=== PATIENT | male | born 1960 | race Two or more races ===

== ENCOUNTER 2024-08-15 20:20 | Emergency (ER) | payer MEDICAID, OTHER ==
[~2024-08-15] VITALS: Ht 175.3 cm; Wt 88.0 kg
--- NOTE | 2024-08-15 21:13 | ED.PDOC ---
General HPI Comments HPI: 64 year old male brought in by presents to the ED with chief complaint of inability to void. Patient reports that he has been experiencing dribbling when attempting to urinate for the past month, worsening over time. Patient relays that he has associated full body aches, no appetite, and subjective fever at home. Patient states he visited Dr. Lakhani's UC, but was advised to come to the ED for further evaluation due to the symptoms discussed. Patient denies any dysuria, hematuria, N/V/D, abdominal pain, or chills. Past Medical history: Denies Past Surgical history: Denies Medications: Denies Allergies: NKDA Social History: denies ETOH, denies tobacco use, denies drug use Initial vitals BP: 126/84 HR: 108 RR: 18 O2 Sat.: 96% Temp.: 98.8F HPI: Poor Historian. REVIEW OF SYSTEMS: CONSTITUTIONAL: Denies acute: fever, diaphoresis, chills, HEAD: Denies acute: headache, photophobia Eyes: Denies acute: Double vision, vision loss, eye pain, eye discharge. EARS: Denies acute: tinnitus, hearing loss, ear discharge, ear pain, THROAT: Denies acute: sore throat, swelling, difficulty swallowing , pain with swallowing, change in voice. NECK: Denies acute: neck pain, neck swelling, stiff neck. HEART: Denies acute : chest pain, palpitations, LUNGS: Denies acute: SOB, wheezing, cough, hemoptysis ABDOMEN: Denies acute: abdominal pain, Nausea, Vomiting, diarrhea, melena , hematemesis, hematochezia SKIN: Denies acute: rash, redness, lesions, itchiness. EXTREMITIES: Denies acute: calf pain, numbness, tingling, weakness, denies pain in extremity. Denies acute: Low back pain. Neuro: Denies acute: focal neurological deficit, motor or sensory focal neurological deficit, tremors, seizure like activity, confusion, dizziness, change in mental status, loss of bowel or bladder function, cauda equina like symptoms. : Denies acute: dysuria, hematuria, flank pain, increase in urinary frequency. PSYCH: Denies acute: hallucination, suicidal ideation, homicidal ideation. PHYSICAL EXAM: General: ----[id number]----acute distress, awake and alert. Head: normocephalic, atraumatic. Neck: supple, trachea is midline, no swelling. Throat: Normal phonation. Eyes:, no erythema, no purulent discharge, no proptosis, no icterus. Heart: regular tachycardia, no significant murmur appreciated. Lungs: no apparent respiratory distress, Able to speak in full sentences. No wheezing, no rhonchi, no crackles. No stridors Clear to auscultation bilaterally. Abdomen: non tender to palpation, non distended, soft, no guarding, no rebound, + bowel sounds. Neuro: Awake, Alert, oriented to name, self, situation, follows commands GCS=15. Speech is normal. Skin: no petechia, no purpura, no cyanosis, non-pale, not jaundice. Lower extremities: --no - Pitting edema no deformity, no focal swelling, no calf TTP. Makes eye contact. moves all four extremities. Face: no apparent facial droop. Ambulating in the ED independently. ED COURSE: Time Seen by MD: 21:10 Reviewed notes: Nurses Notes, Medications, Allergies Allergies: Coded Allergies: No Known Drug Allergy (Verified Allergy, Unknown, 08/15/24) Information Source: Patient Mode of Arrival: Ambulatory Was a procedure done? Was a procedure done?: No Differential Diagnosis Kidney stone (Female): N/A Urinary Problem (Male): Bladder Outlet, Bladder Obstruction, Epididymitis, Prostatitis, Plelonephritis, Post op Complications, Renal Failure, Urethritis, Urinary Retention, Urolithiasis, UTI, Other (MALE URINARY PROBLEMSDDX BPH, OBSTRUCTING NEOPLASM, BLADDER PATHOLOGY, OBSTRUCTION STONE. PHYMOSIS/PAPRPHYM OSIS, CAUDA EQUINA SYNDROME, UTI.) X-Ray, Labs, Meds, VS Vital Signs Date Time Temp Pulse Resp B/P (MAP) Pulse Ox O2 Delivery O2 Flow Rate FiO2 08/15/24 21:15 99.8 108 18 126/84 (98) 96 99.8 Lab Test 08/15/24 22:16 08/15/24 21:53 08/15/24 21:25 Range/Units Troponin I High Sensitivity 13 13 </=54 ng/L Urine Color Yellow Yellow Urine Clarity Turbid H Clear Urine pH 5.5 5.0-9.0 Urine Specific [place] 1.020 1.001-1.035 Urine Protein Trace H Negative Urine Ketones Negative Negative Urine Blood 2+ H Negative /uL Urine Nitrite Negative Negative Urine Bilirubin Negative Negative Urine Urobilinogen Normal Negative mg/dL Urine Leukocyte Esterase 3+ Negative /uL Urine RBC 15 0 - 3 /hpf Urine Microscopic WBC 262 H 0-3 /HPF Urine Squamous Epithelial Cells Few <5 /hpf Urine Bacteria None seen None Seen /hpf Urine Mucus Few None Seen Urine Glucose Normal Normal mg/dL White Blood Count 12.9 H 4.4-10.8 10^3/uL Red Blood Count 5.34 4.5-5.90 10^6/uL Hemoglobin 15.1 13.5-17.5 g/dL Hematocrit 44.4 41.0-53.0 % Mean Corpuscular Volume 83.1 80.0-100.0 fL Mean Corpuscular Hemoglobin 28.3 28.0-32.0 pg Mean Corpuscular Hemoglobin Concent 34.0 32.0-36.0 g/dL Red Cell Distribution Width 15.7 H 11.8-14.3 % Platelet Count 291 140-450 10^3/uL Mean Platelet Volume 7.3 6.9-10.8 fL Neutrophils (%) (Auto) 72.7 37.0-80.0 % Lymphocytes (%) (Auto) 13.4 10.0-50.0 % Monocytes (%) (Auto) 12.6 H 0.0-12.0 % Eosinophils (%) (Auto) 0.4 0.0-7.0 % Basophils (%) (Auto) 0.9 0.0-2.0 % Neutrophils # (Auto) 9.4 H 1.6-8.6 10 ^3/uL Lymphocytes # (Auto) 1.7 0.4-5.4 10 ^3/uL Monocytes # (Auto) 1.6 H 0-1.3 10 ^3/uL Eosinophils # (Auto) 0 0-0.8 10 ^3/uL Basophils # (Auto) 0.1 0-0.2 10 ^3/uL Nucleated Red Blood Cells 0.1 % Sodium Level 135 L 136-145 mmol/L Potassium Level 4.0 3.5-5.1 mmol/L Chloride Level 105 98-107 mmol/L Carbon Dioxide Level 22 20-31 mmol/L Anion Gap 8 5-15 Blood Urea Nitrogen 19 9-23 mg/dL Creatinine 1.24 0.700-1.30 mg/dL Glomerular Filtration Rate Calc 65 >90 mL/min BUN/Creatinine Ratio 15.3 10.0-20.0 Serum Glucose 109 H 74-106 mg/dL Lactic Acid Level 1.1 0.4-2.0 mmol/L Calcium Level 9.5 8.7-10.4 mg/dL Magnesium Level 2.0 1.6-2.6 mg/dL Total Bilirubin 0.9 0.2-1.0 mg/dL Aspartate Amino Transferase (AST) 14 13-40 U/L Alanine Aminotransferase (ALT) 22 7-40 U/L Alkaline Phosphatase 97 46-116 U/L Total Protein 8.0 5.7-8.2 g/dL Albumin 4.4 3.2-4.8 g/dL [place] [id number] Ph: [phone] DIAGNOSTIC IMAGING Diagnostic Imaging Report : [id number] Signed PATIENT: MIGUELITO SANTIAGO ACCT: [id number] UNIT: [id number] : 1960 LOC: ER ROOM / BED: / AGE / SEX: 64 / M ADM STATUS: REG ER SERVICE [id number] ORDERING PHYSICIAN: ANTONY SANDHU DO PROCEDURE(s): ABPL - CT AB PEL WO CON-NO ORAL OR IV REASON: Unable to urinate ORDER NUMBER(s): [id number], ACCESSION NUMBER(s): [id number] Exam: CT CT AB PEL WO CON-NO ORAL OR IV History: Unable to urinate Comparison Study: None Technique: Multidetector spiral CT of the abdomen was performed from lung bases to pubic symphysis. Imaging was performed without IV contrast. Axial, coronal and sagittal multiplanar reformats were obtained from the axial data set by the technologist. Radiation Dose : 1. Abdomen/Pelvis: CTDIvol 15 mGy, DLP 926 mGy*cm. Findings: Evaluation of solid organs is limited due to lack of intravenous contrast use. Lung Bases: Partially visualized descending thoracic aorta measures 4 cm in diameter. Liver: The liver is normal in size. No focal lesions. Gallbladder and Biliary Tree: Distended gallbladder demonstrating choleli thiasis. Spleen: Unremarkable Pancreas: The pancreas is grossly normal in appearance. Adrenal Glands: Unremarkable Kidneys: Kidneys are grossly normal without calculi or hydronephrosis. Bladder: Mild diffuse wall thickening. Bowel: The stomach is grossly normal in appearance. Small bowel and colon are normal in caliber and distribution. Normal appendix is visualized in the right lower quadrant without findings of appendicitis. Ascites: Absent Lymphadenopathy: No mesenteric, retroperitoneal or periportal lymphadenopathy. Abdominal Wall and Mesentery: Unremarkable. Vasculature: The visualized abdominal aorta is normal in size and caliber. Evaluation of abdominal and pelvic vessels is limited due to lack of intravenous contrast. Pelvic Organs: Unremarkable Musculoskeletal: No aggressive focal bony lesions, acute fractures or dislocation. IMPRESSION: Diffuse urinary bladder wall thickening. Correlate for acute infectious/inflammatory process. Cholelithiasis within a distended gallbladder. Partially visualized descending thoracic aorta measuring 4.1 cm. END IMPRESSION: ATED BY: CHARLY COOPER DO DICTATED DATE/TIME: 08/15/242216 SIGNED BY: CHARLY COOPER DO SIGNED DATE/TIME: 08/15/242216 CC: Time of 1ST Reevaluation: 00:00 Reevaluation 1ST: Unchanged Patient Education/Counseling: Diagnosis, Treatment Family Education/Counseling: Diagnosis, Treatment Comments Patient presented with the above HPI.---urinary symptoms---workup was initiated. patient was found with the above mentioned diagnosis. the following medications were ordered: please refer to order lists of meds and tests obtained by myself Dr. Sandhu. Patient ED course and VS have been stabilized. Patient has been reassessed in the ED and remained in a stable condition. Pertinent incidental findings were discussed with the patient and/or family. Patient/family voices understanding and is agreeable with plan. Patient has been observed in the ED adequate length of time to insure improvement/stability. Escalation of care considered: Consideration of escalation to observation or admission Patient appears septic and has generalized body aches and is in moderate distress. Fluids and antibiotics initiated. Sepsis protocol was initiated with weight based fluid resuscitation. Patient was ADMITTED to the medicine team for further evaluation and treatment of their presentation. All the reports of any imaging studies that were ordered by myself were reviewed by myself. Departure 1 Departure Time of Disposition: 22:30 Impression: Primary Impression: Cystitis Additional Impressions: UTI (urinary tract infection) Sepsis Disposition: ADMITTED INPATIENT Admit to: Tele Condition: Guarded Discharged With: Self Critical Care Note Critical Care Time?: Yes (35 min-critical care time only) I personally scribed for ANTONY SANDHU DO ([email or web address]) on 08/15/24 at 21:12. Electronically submitted by Graham Kenny ([email or web address]). ANTONY SANDHU DO Aug 15, 2024 21:12
[2024-08-15 21:15] VITALS: BP 126/84; PULSE 108; RESP 18; TEMP 99.8; O2SAT 96
[2024-08-15 21:39] LABS: Basophils # (auto) 0.1 10 ^3/uL (0-0.2); Basophils % (auto) 0.9 % (0.0-2.0); Eosinophils # (auto) 0 10 ^3/uL (0-0.8); Eosinophils % (auto) 0.4 % (0.0-7.0); Hematocrit 44.4 % (41.0-53.0); Hemoglobin 15.1 g/dL (13.5-17.5); Lymphocytes # (auto) 1.7 10 ^3/uL (0.4-5.4); Lymphocytes % (auto) 13.4 % (10.0-50.0); Mean Corpuscular Hemoglobin 28.3 pg (28.0-32.0); Mean Corpuscular Volume 83.1 fL (80.0-100.0); Monocytes # (auto) 1.6 10 ^3/uL (0-1.3); Monocytes % (auto) 12.6 % (0.0-12.0); Neutrophils # (auto) 9.4 10 ^3/uL (1.6-8.6); Neutrophils % (auto) 72.7 % (37.0-80.0); Nucleated Red Blood Cells % 0.1 %; Platelet Count (auto) 291 10^3/uL (140-450); Red Blood Cells 5.34 10^6/uL (4.5-5.90); Red Cell Distribution Width 15.7 % (11.8-14.3); White Blood Cell 12.9 10^3/uL (4.4-10.8)
[2024-08-15 21:54] LABS: Urine Bacteria None Seen /hpf (None Seen)
[2024-08-15 21:58] LABS: Alanine Aminotransferase 22 U/L (7-40); Albumin 4.4 g/dL (3.2-4.8); Alkaline Phosphatase 97 U/L (46-116); Anion Gap 8 (5-15); Aspartate Aminotransferase 14 U/L (13-40); BUN/Creatinine Ratio 15.3 (10.0-20.0); Bilirubin, Total 0.9 mg/dL (0.2-1.0); Blood Urea Nitrogen 19 mg/dL (9-23); Calcium 9.5 mg/dL (8.7-10.4); Carbon Dioxide 22 mmol/L (20-31); Chloride 105 mmol/L (98-107)
[2024-08-15 22:06] LABS: Glucose 109 mg/dL (74-106); Sodium 135 mmol/L (136-145)
[2024-08-15 22:11] LABS: Urine Blood 2+ /uL (Negative); Urine Clarity Turbid (Clear); Urine Color Yellow (Yellow); Urine Mucus FEW (None Seen); Urine Protein, UAD TRACE (Negative); Urine Squamous Epithelial Cell FEW /hpf (<5); Urine Urobilinogen Normal (Negative); Urine WBC 262 /HPF (0-3); Urine pH 5.5 (5.0-9.0)
--- NOTE | 2024-08-15 22:19 | DVH ---
Exam: CT CT AB PEL WO CON-NO ORAL OR IV History: Unable to urinate Comparison Study: None Technique: Multidetector spiral CT of the abdomen was performed from lung bases to pubic symphysis. I maging was performed without IV contrast. Axial, coronal and sagittal multiplanar reformats were obta ined from the axial data set by the technologist. Radiation Dose : 1. Abdomen/Pelvis: CTDIvol 15 mGy, DLP 926 mGy*cm. Findings: Evaluation of solid organs is limited due to lack of intravenous contrast use. Lung Bases: Partially visualized descending thoracic aorta measures 4 cm in diameter. Liver: The liver is normal in size. No focal lesions. Gallbladder and Biliary Tree: Distended gallbladder demonstrating cholelithiasis. Spleen: Unremarkable Pancreas: The pancreas is grossly normal in appearance. Adrenal Glands: Unremarkable Kidneys: Kidneys are grossly normal without calculi or hydronephrosis. Bladder: Mild diffuse wall thickening. Bowel: The stomach is grossly normal in appearance. Small bowel and colon are normal in caliber and d istribution. Normal appendix is visualized in the right lower quadrant without findings of appendicit is. Ascites: Absent Lymphadenopathy: No mesenteric, retroperitoneal or periportal lymphadenopathy. Abdominal Wall and Mesentery: Unremarkable. Vasculature: The visualized abdominal aorta is normal in size and caliber. Evaluation of abdominal a nd pelvic vessels is limited due to lack of intravenous contrast. Pelvic Organs: Unremarkable Musculoskeletal: No aggressive focal bony lesions, acute fractures or dislocation. IMPRESSION: Diffuse urinary bladder wall thickening. Correlate for acute infectious/inflammatory process. Cholelithiasis within a distended gallbladder. Partially visualized descending thoracic aorta measuring 4.1 cm. END IMPRESSION:
[2024-08-16] MEDS: TAMSULOSIN HYDROCHLORIDE 0.4 MG CAP PO ONE (03:39)
[2024-08-16] MEDS: SODIUM CHLORIDE 0.9% 1,000 ML IV ONE ×3 (03:39→03:42)
[2024-08-16] MEDS: cefTRIAXone 1GM/50ML D5W 50 ML IV ONE (03:39)
== END 2024-08-16 04:31 | disposition left against medical advice (07) ==
LOC: ER 20:20
DX: A41.9 Sepsis, unspecified organism (principal); N39.0 Urinary tract infection, site not specified; Z79.899 Other long term (current) drug therapy
CPT/HCPCS: 36415; 74176; 80053; 81001; 83605; 83735; 84484; 85025; 87040; 96365; 99291; J0696

== ENCOUNTER 2024-11-14 10:42 | Inpatient (IN) | payer MEDICAID ==
[~2024-11-14] VITALS: Ht 172.7 cm; Wt 91.3 kg
--- NOTE | 2024-11-14 11:40 | ED.PDOC ---
History of Present Illness HPI Comments 64-year-old male presents to the ER with no prior medical history associated with a chief complaint of body soreness. Patient reports on having a cold for the last three days as well as body soreness which started last night. Patient did urinate in his pants in the ER. Denies fever, N/V/D, SOB, CP. No other associated symptoms, modifiers, recent injuries or sick contacts present at this time. Chief Complaint: Abdominal Pain Time Seen by MD: 11:30 Reviewed Notes: Nurses Notes, Medications, Allergies Allergies: Coded Allergies: No Known Drug Allergy (Verified Allergy, Unknown, 08/15/24) Information Source: Patient Mode of Arrival: EMS Severity: Moderate Timing: Days Duration: Since onset, Days Prehospital treatment: None Past Medical History PAST MEDICAL HISTORY: Denies Surgical History: Denies all surgeries Family History Family History: Reviewed,noncontributory to illness, Unknown Social History Smoker: Non-Smoker Alcohol: Denies ETOH Use Drugs: Denies Drug Use Lives In: Home Constitutional: reports: chills, others (Body soreness); denies: diaphoresis, fatigue, fever, malaise, sweats, weakness EENTM: denies: blurred vision, double vision, ear bleeding, ear discharge, ear drainage, ear pain, ear ringing, eye pain, eye redness, hearing loss, mouth pain, mouth swelling, nasal discharge, nose bleeding, nose congestion, nose pain, photophobia, tearing, throat pain, throat swelling, voice changes, others Respiratory: denies: cough, hemoptysis, orthopnea, SOB at rest, shortness of breath, SOB with excertion, stridor, wheezing, others Cardiovascular: denies: chest pain, dizzy spells, diaphoresis, Dyspnea on exertion, edema, irregular heart beat, left arm pain, lightheadedness, palpitations, PND, syncope, others Gastrointestinal: denies: abdomen distended, abdominal pain, blood streaked bowels, constipated, diarrhea, dysphagia, difficulty swallowing, hematemesis, melena, nausea, poor appetite, poor fluid intake, rectal bleeding, rectal pain, vomiting, others Genitourinary: denies: burning, dysuria, flank pain, frequency, hematuria, incontinence, penile discharge, penile sore, pain, testicle pain, testicle swelling, urgency, others Neurological: denies: dizziness, fainting, headache, left sided numbness, left sided weakness, numbness, paresthesia, pre-existing deficit, right sided numbness, right sided weakness, seizure, speech problems, tingling, tremors, weakness, others Musculoskeletal: denies: back pain, gout, joint pain, joint swelling, muscle pain, muscle stiffness, neck pain, others Integumetry: denies: bruises, change in color, change in hair/nails, dryness, laceration, lesions, lumps, rash, wounds, others Allergic/Immunocompromised: denies: Difficulty Healing, Frequent Infections, Hives, Itching, others Hematologic/Lymphatic: denies: anemia, blood clots, easy bleeding, easy bruising, swollen glands, others Endocrine: denies: excessive hunger, excessive sweating, excessive thirst, excessive urination, flushing, intolerance to cold, intolerance to heat, unexplained weight gain, unexplained weight loss, others Psychiatric: denies: anxiety, bipolar disorder, depression, hopeless, panic disorder, schizophrenia, sleepless, suicidal, others All Other Systems: Reviewed and Negative Physical Exam Exam Comments Patient looks uncomfortable General Appearance: No Apparent Distress, Normal HEENT: Normal ENT Inspection, Pharynx Normal, TMs Normal Neck: Full Range of Motion, Non-Tender, Normal, Normal Inspection Respiratory: Chest Non-Tender, Lungs Clear, No Accessory Muscle Use, No Respiratory Distress, Normal Breath Sounds Cardiovascular: No Edema, No JVD, No Murmur, No Gallop, Normal Peripheral Pulses, Regular Rate/Rhythm Breast Exam: Deferred Gastrointestinal: No Organomegaly, Non Tender, No Pulsatile Mass, Normal Bowel Sounds, Soft Genitalia: Deferred Pelvic: Deferred Rectal: Deferred Extremities: No calf tenderness, Normal capillary refill, Normal inspection, Normal range of motion, Non-tender, No pedal edema Musculoskeletal : Apperance: Normal Neurologic: Alert, 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 Was a procedure done?: No Differential Dx Considerations may include: Sepsis, viral syndrome, infectious etiology, , electrolyte abnormality X-Ray, Labs, Meds, VS Vital Signs Date Time Temp Pulse Resp B/P (MAP) Pulse Ox O2 Delivery O2 Flow Rate FiO2 11/14/24 10:44 98.0 100 24 131/63 98 98.0 Lab Test 11/14/24 15:32 11/14/24 13:17 11/14/24 12:22 Range/Units Troponin I High Sensitivity Pending 11 9 </=54 ng/L White Blood Count 18.2 H 4.4-10.8 10^3/uL Red Blood Count 5.28 4.5-5.90 10^6/uL Hemoglobin 15.1 13.5-17.5 g/dL Hematocrit 44.5 41.0-53.0 % Mean Corpuscular Volume 84.3 80.0-100.0 fL Mean Corpuscular Hemoglobin 28.6 28.0-32.0 pg Mean Corpuscular Hemoglobin Concent 33.9 32.0-36.0 g/dL Red Cell Distribution Width 15.4 H 11.8-14.3 % Platelet Count 187 140-450 10^3/uL Mean Platelet Volume 7.2 6.9-10.8 fL Neutrophils (%) (Auto) 96.6 H 37.0-80.0 % Lymphocytes (%) (Auto) 1.5 L 10.0-50.0 % Monocytes (%) (Auto) 1.6 0.0-12.0 % Eosinophils (%) (Auto) 0.0 0.0-7.0 % Basophils (%) (Auto) 0.3 0.0-2.0 % Neutrophils # (Auto) 17.6 H 1.6-8.6 10 ^3/uL Lymphocytes # (Auto) 0.3 L 0.4-5.4 10 ^3/uL Monocytes # (Auto) 0.3 0-1.3 10 ^3/uL Eosinophils # (Auto) 0 0-0.8 10 ^3/uL Basophils # (Auto) 0 0-0.2 10 ^3/uL Nucleated Red Blood Cells 0.0 % Sodium Level 136 136-145 mmol/L Potassium Level 4.2 3.5-5.1 mmol/L Chloride Level 105 98-107 mmol/L Carbon Dioxide Level 23 20-31 mmol/L Anion Gap 8 5-15 Blood Urea Nitrogen 17 9-23 mg/dL Creatinine 1.11 0.700-1.30 mg/dL Glomerular Filtration Rate Calc 74 >90 mL/min BUN/Creatinine Ratio 15.3 10.0-20.0 Serum Glucose 122 H 74-106 mg/dL Calcium Level 8.9 8.7-10.4 mg/dL B-Type Natriuretic Peptide 131.75 0-100 pg/mL Time of 1ST Reevaluation: 12:00 Reevaluation 1ST: Unchanged Patient Education/Counseling: Diagnosis, Treatment, Prognosis Family Education/Counseling: No Family Present SEPSIS Sepsis Screen Date sepsis recognized/suspect: Nov 14, 2024 Time Sepsis recognized/suspect: 1044 Recent Procedure: No On Antibiotic Therapy: No Respiratory Rate >20: No Heart Rate >90: Yes Temp<36 C (96.8 F) or >38.3 C: No SBP <90 or MAP <65 mmHG: No New Acute Mental Status Change: No Is the patient on CPAP, BIPAP,: No Physician Orders Urinalysis (11/14/24 12:15) Chest Portable (11/14/24 12:15) Troponin-I Hs (11/14/24 15:15) Vital Signs Date Time Temp Pulse Resp B/P (MAP) Pulse Ox O2 Delivery O2 Flow Rate FiO2 11/14/24 10:44 98.0 100 24 131/63 98 98.0 Laboratory Tests Test 11/14/24 12:22 White Blood Count 18.2 10^3/uL (4.4-10.8) H Departure 1 Departure Time of Disposition: 15:52 (Patient with concern for sepsis. We will empirically cover patient with antibiotics and fluids and admit patient for further workup and expert consultation) Impression: Primary Impression: Near syncope Additional Impression: Generalized weakness Disposition: ADMITTED INPATIENT Admit to: Med Surg Condition: Serious Critical Care Note Critical Care Time?: No Stability Stability form required: No I personally scribed for KE DC MD ([email or web address]) on 11/14/24 at 11:40. Electronically submitted by Nicolás Alfaro ([email or web address]). KE DC MD Nov 14, 2024 11:40
[2024-11-14 12:37] LABS: Hematocrit 44.5 % (41.0-53.0); Hemoglobin 15.1 g/dL (13.5-17.5); Mean Corpuscular Hemoglobin 28.6 pg (28.0-32.0); Mean Corpuscular Volume 84.3 fL (80.0-100.0); Nucleated Red Blood Cells % 0.0 %
[2024-11-14 13:01] LABS: Chloride 105 mmol/L (98-107); Potassium 4.2 mmol/L (3.5-5.1); Sodium 136 mmol/L (136-145)
[2024-11-14 13:02] LABS: Anion Gap 8 (5-15); Carbon Dioxide 23 mmol/L (20-31)
[2024-11-14 13:03] LABS: Calcium 8.9 mg/dL (8.7-10.4)
--- NOTE | 2024-11-14 13:03 | DVH ---
EXAM: XY CHEST PORTABLE Indication: weakness Technique: Single frontal view of the chest was obtained Comparison: None FINDINGS: Lines and Tubes: None Lungs: No focal consolidation. Pleura: No effusion. No pneumothorax. Cardiomediastinal contours: Unremarkable Bones: No acute osseous abnormality. IMPRESSION: No acute cardiopulmonary disease.
[2024-11-14 13:07] LABS: BUN/Creatinine Ratio 15.3 (10.0-20.0); Blood Urea Nitrogen 17 mg/dL (9-23)
[2024-11-14 13:08] LABS: Glucose 122 mg/dL (74-106)
[2024-11-14] MEDS: VANCOMYCIN 1GM/250ML KIT 250 ML IV ONE (16:32)
[2024-11-14] MEDS: CEFEPIME 2GM/50ML NS 50 ML IV ONE (16:32)
[2024-11-14 17:29] LABS: Lactic Acid w/Reflex 2.3 mmol/L (0.4-2.0)
[2024-11-14 18:36] VITALS: PULSE 113; RESP 18; O2SAT 94
[2024-11-14] MEDS ORDERED: NITROGLYCERIN 0.4 MG SL TAB SL PRN (23:00)
[2024-11-14] MEDS ORDERED: DOCUSATE SOD 100 MG CAP PO PRN (23:00)
[2024-11-15] VITALS (9 sets, daily range): BP systolic 108–136; BP diastolic 61–89; PULSE 72–121; RESP 16–24; TEMP 97.6–99.4; O2SAT 92–98
[2024-11-15] MEDS: ACETAMINOPHEN 325 MG TAB PO PRN (00:42)
[2024-11-15] MEDS ORDERED: VANCOMYCIN PER PHARMACY 0 MG IV SCH (02:30)
[2024-11-15 02:45] LABS: COVID19 ANTIGEN SOFIA FIA NEGATIVE (NEGATIVE)
[2024-11-15] MEDS: LACTATED RINGER'S 2,000 ML IV ONE (02:50)
[2024-11-15] MEDS: VANCOMYCIN 1GM/250ML IV ONE (03:25)
[2024-11-15] MEDS: CEFEPIME 2GM/50ML NS 50 ML IV SCH ×2 (03:59→11:29)
[2024-11-15] MEDS: ONDANSETRON HCL 4 MG/2 ML VIAL IV PRN (06:05)
[2024-11-15] MEDS: IOHEXOL 300 MG/ML 100ML BOTTLE IJ ONE (06:51)
--- NOTE | 2024-11-15 06:55 | DVH ---
Exam: CT CT AB PEL WITH IV CON ONLY History: sepsis, to rule out intraabdominal patology COMPARISON: None Technique: Multidetector spiral CT of the abdomen and pelvis was performed from lung bases to pubic s ymphysis. Intravenous contrast was administered during this examination. Portal venous imaging was o btained. Axial, coronal and sagittal multiplanar reformats were performed by the technologist on a [employer] workstation. Radiation Dose : 1. Abdomen/Pelvis: CTDIvol 21.79 mGy, DLP 1374.19 mGy*cm. CONTRAST: Type of contrast: Omniscan 300 Contrast injected: 100 ml Findings: Lung Bases: No acute or significant lung base finding. Moderate bibasilar atelectasis. Cardiomegaly. No pleural or pericardial effusion. Liver: The liver is enlarged, measuring 21.8 cm in craniocaudal dimension. Hepatic steatosis. No foca l lesions. Normal hepatic vascular enhancement. Gallbladder and Biliary Tree: Cholelithiasis, gallbladder wall thickening and pericholecystic edema. Spleen: Unremarkable Pancreas: The pancreas is normal in appearance without focal lesions or abnormal enhancement. Adrenal Glands: Unremarkable Kidneys: No hydronephrosis. Bladder: Unremarkable Bowel: The stomach is grossly normal in appearance. Small bowel and colon are normal in caliber and d istribution. Diverticulosis coli without CT evidence of acute diverticulitis. The appendix is normal. Ascites: Absent Lymphadenopathy: No mesenteric, retroperitoneal or periportal lymphadenopathy. Abdominal Wall and Mesentery: Unremarkable. Vasculature: The visualized abdominal aorta is normal in size and caliber. Abdominal and pelvic vess els demonstrate normal enhancement. Pelvic Organs: Unremarkable Musculoskeletal: No aggressive focal bony lesions, acute fractures or dislocation. IMPRESSION: 1. Cholelithiasis, gallbladder wall thickening and pericholecystic edema. Findings are suspicious for acute cholecystitis. Ultrasound recommended. 2. Hepatomegaly and hepatic steatosis. 3. Diverticulosis coli without CT evidence of acute diverticulitis. 4. Cardiomegaly. Radiation optimization: All CT scans at this facility use at least one of these dose optimization rebecca hniques: automated exposure control mA and/or kV adjustment per patient size (includes targeted exam s where dose is matched to clinical indication) or iterative reconstruction.
[2024-11-15 07:06] LABS: Urine Protein, UAD TRACE (Negative)
[2024-11-15 08:34] LABS: Hematocrit 43.7 % (41.0-53.0); Hemoglobin 14.7 g/dL (13.5-17.5); Mean Corpuscular Hemoglobin 28.7 pg (28.0-32.0); Mean Corpuscular Volume 85.1 fL (80.0-100.0); Nucleated Red Blood Cells % 0.1 %
[2024-11-15 09:02] LABS: Albumin 3.4 g/dL (3.2-4.8); Alkaline Phosphatase 79 U/L (46-116); Anion Gap 8 (5-15); BUN/Creatinine Ratio 14.4 (10.0-20.0); Bilirubin, Total 0.6 mg/dL (0.2-1.0); Blood Urea Nitrogen 16 mg/dL (9-23); Sodium 136 mmol/L (136-145); Total Protein 6.6 g/dL (5.7-8.2)
[2024-11-15 09:04] LABS: Alanine Aminotransferase 44 U/L (7-40); Calcium 8.1 mg/dL (8.7-10.4); Carbon Dioxide 20 mmol/L (20-31); Chloride 108 mmol/L (98-107); Glucose 114 mg/dL (74-106); Potassium 3.5 mmol/L (3.5-5.1)
--- NOTE | 2024-11-15 11:45 | DVHHPRES ---
History of Present Illness Resident Creating Document: JES AVILA RESIDENT History of Present Illness Jose Luis Faye is a 46-year-old male with a history of hypertension presenting with abdominal pain for 6 days, described as sharp, 8/10 in intensity, intermittent, non-radiating, worsened by eating, and without relieving factors. He denies vomiting, diarrhea, or unusual food intake. He also reports a recent cold for 3 days, body soreness since last night, and an episode of urinary incontinence in the ER. He denies fever, chest pain, shortness of breath, nausea, or other associated symptoms. Symptoms are moderate in severity and have been ongoing for several days; he arrived via EMS with no prehospital treatment. Past Medical History (PMH): hypertension CKD, diverticulosis, grade 1 obesity Past Surgical History (PSH): Patient denies any past surgical history OBGYN Hx in Females: Nonrelevant Family history (FH): History of diabetes mellitus in father, noncontributory to the admission Home Medications: No home me a.m. calling her back in a year home BP, unless dications Social History: Stopped alcohol use 8 months ago, 3 pack-year smoking history, denies recreational drug use, lives with . Allergies: No known allergies PCP: Patient does not have a PCP, advised to follow up with [facility] as outpatient on discharge. Specialist relevant to admission: General surgery, to consult urgently if patient is positive for acute cholecystitis for in-hospital surgical management. Review of Systems Review of Systems CONSTITUTIONAL: Fever, night sweats, weight loss, Lymphadenopathy, ecchymoses, fatigue: Negative DERMATOLOGIC: Rash, New/growing/changing skin lesions: Negative HEENT: Vision change, eye pain, Rhinorrhea, sinus pain, epistaxis, dysphagia, odynophagia, globus sensation, Change in hearing, tinnitus, vertigo, otalgia, Dental problems, oral ulcers or lesions: : Negative ENDOCRINE: Weight change, heat or cold intolerance, tremor, insomnia, neck pain or swelling, Polyuria, polydipsia, polyphagia, Abnormal hair growth, change in nails: Negative CARDIOVASCULAR: Chest pain, palpitations, syncope, Edema, cyanosis, claudication, Orthopnea, paroxysmal nocturnal dyspnea: Negative PULMONARY: Shortness of breath, dyspnea with exertion, Cough, hemoptysis, wheezing, chest pain : Negative GI: Nausea, vomiting, diarrhea, melena, hematochezia, Change in appetite, change in bowel habits or stools: Negative, complains of abdominal pain : Dysuria, frequency, urgency, Urinary incontinence, hematuria, foamy urine, nocturia, Change in libido, erectile dysfunction, Change in menses, dysmenorrhea, dyspaerunia, pelvic pain: : Negative MUSCULOSKELETAL: Joint swelling or pain, muscle pain, back pain: : Negative NEUROLOGIC: Headache, scotoma, Change in smell or taste, change in facial muscles, Muscle weakness, paresthesias, anesthesia, Ataxia, change in speech: Negative PSYCHIATRIC: Depression, anxiety, hallucinations, brenden, suicidal/homicidal thoughts, Binging, purging: Negative Allergies: Coded Allergies: No Known Drug Allergy (Verified Allergy, Unknown, 08/15/24) Medications Current Medications Medications Dose Ordered Sig/Ramon Route Start Time Stop Time Status Last Admin Dose Admin Acetaminophen 650 mg Q4HP PRN PO 11/14/24 23:00 11/15/24 00:42 650 MG Ondansetron HCl 4 mg Q4HP PRN IV 11/14/24 23:00 Docusate Sodium 100 mg BIDPRN PRN PO 11/14/24 23:00 Nitroglycerin 0.4 mg Q5MINP PRN SL 11/14/24 23:00 Vancomycin HCl 0 ml @ 0 mls/hr UD IV 11/15/24 02:30 UNV Cefepime HCl 50 ml @ 50 mls/hr Q8HR IV 11/15/24 02:30 Exam Vital Signs Vital Signs Date Time Temp Pulse Resp B/P (MAP) Pulse Ox O2 Delivery O2 Flow Rate FiO2 11/15/24 00:21 99.4 121 24 127/73 (91) 92 99.4 11/14/24 18:36 Room Air* 0 21 Exam General Appearance: Alert, Oriented X3, Cooperative, patient is in acute distress HEENT: Atraumatic, PERRLA, EOMI, Mucous membrane moist/pink Respiratory: Clear to auscultation, Normal air movement Cardiovascular: Regular rate, Normal S1, Normal S2, No murmurs, no chest wall tenderness Abdominal: Diffuse abdominal tenderness, no guarding or rigidity Extremities: No clubbing, No cyanosis, No edema, Normal pulses, No tenderness/swelling Skin: No rashes, No breakdown, No significant lesion Neuro: Normal gait, Normal speech, Strength at 5/5 X4 ext, Normal tone, Sensation intact, Cranial nerves 3-12 NL, Reflexes 2+ Psych/Mental Status: Mental status NL, Mood NL Labs/Xrays Labs Test 11/15/24 01:35 11/15/24 00:37 11/14/24 19:00 11/14/24 15:32 Range/Units POC Glucose 108 H 70-106 mg/dl Lactic Acid Level 1.6 0.4-2.0 mmol/L Troponin I High Sensitivity 14 </=54 ng/L Test 11/14/24 12:22 Range/Units White Blood Count 18.2 H 4.4-10.8 10^3/uL Red Blood Count 5.28 4.5-5.90 10^6/uL Hemoglobin 15.1 13.5-17.5 g/dL Hematocrit 44.5 41.0-53.0 % Mean Corpuscular Volume 84.3 80.0-100.0 fL Mean Corpuscular Hemoglobin 28.6 28.0-32.0 pg Mean Corpuscular Hemoglobin Concent 33.9 32.0-36.0 g/dL Red Cell Distribution Width 15.4 H 11.8-14.3 % Platelet Count 187 140-450 10^3/uL Mean Platelet Volume 7.2 6.9-10.8 fL Neutrophils (%) (Auto) 96.6 H 37.0-80.0 % Lymphocytes (%) (Auto) 1.5 L 10.0-50.0 % Monocytes (%) (Auto) 1.6 0.0-12.0 % Eosinophils (%) (Auto) 0.0 0.0-7.0 % Basophils (%) (Auto) 0.3 0.0-2.0 % Neutrophils # (Auto) 17.6 H 1.6-8.6 10 ^3/uL Lymphocytes # (Auto) 0.3 L 0.4-5.4 10 ^3/uL Monocytes # (Auto) 0.3 0-1.3 10 ^3/uL Eosinophils # (Auto) 0 0-0.8 10 ^3/uL Basophils # (Auto) 0 0-0.2 10 ^3/uL Nucleated Red Blood Cells 0.0 % Sodium Level 136 136-145 mmol/L Potassium Level 4.2 3.5-5.1 mmol/L Chloride Level 105 98-107 mmol/L Carbon Dioxide Level 23 20-31 mmol/L Anion Gap 8 5-15 Blood Urea Nitrogen 17 9-23 mg/dL Creatinine 1.11 0.700-1.30 mg/dL Glomerular Filtration Rate Calc 74 >90 mL/min BUN/Creatinine Ratio 15.3 10.0-20.0 Serum Glucose 122 H 74-106 mg/dL Calcium Level 8.9 8.7-10.4 mg/dL B-Type Natriuretic Peptide 131.75 0-100 pg/mL SEPSIS Sepsis Screen Date sepsis recognized/suspect: Nov 14, 2024 Time Sepsis recognized/suspect: 1043 Recent Procedure: No On Antibiotic Therapy: No Respiratory Rate >20: No Heart Rate >90: Yes Temp<36 C (96.8 F) or >38.3 C: No SBP <90 or MAP <65 mmHG: No New Acute Mental Status Change: No Is the patient on CPAP, BIPAP,: No Physician Orders Admit (11/14/24 22:54) Allergies (11/14/24 22:54) Code Status (11/14/24 22:54) Acetaminophen Tablet (Tylenol Tablet) (11/14/24 23:00) Ondansetron Hcl (Zofran) (11/14/24 23:00) Docusate Sodium Capsule (Colace Capsule) (11/14/24 23:00) Fall Risk Precautions In Place QSHIFT (11/14/24 22:54) Complete Blood Count (11/15/24 04:00) Comprehensive Metabolic Panel (11/15/24 04:00) Condition: Fair (11/14/24 22:54) Stat Ekg For Chest Pain (11/14/24 22:54) Nitroglycerin Sublingual (Ntrostat Subli (11/14/24 23:00) Rapid Influenza A&B (11/15/24 01:42) Covid19 Antigen Rowan (11/15/24 ) Lactated Ringer's (11/15/24 02:30) Blood Culture (11/15/24 02:26) Urine Bacterial Culture (11/15/24 02:26) Respiratory Culture W/ Gs (11/15/24 02:26) Vancomycin Per Pharmacy (11/15/24 02:30) Cefepime 2gm/50ml Ns (Maxipime 2gm/50ml) (11/15/24 02:30) Ct Ab Pel With Iv Con Only (11/15/24 02:33) Npo (Nothing By Mouth) Diet (11/15/24 Breakfast) Vancomycin 1gm/250ml Kit (11/15/24 02:45) Vital Signs Date Time Temp Pulse Resp B/P (MAP) Pulse Ox O2 Delivery O2 Flow Rate FiO2 11/15/24 00:21 99.4 121 24 127/73 (91) 92 99.4 11/14/24 23:47 99.3 64 20 140/82 (101) 93 99.3 Laboratory Tests Test 11/14/24 16:51 11/14/24 19:00 Lactic Acid Level 2.3 mmol/L (0.4-2.0) *H 1.6 mmol/L (0.4-2.0) Medications Medications Dose Ordered Sig/Ramon Route Start Time Stop Time Status Last Admin Dose Admin Acetaminophen 650 mg Q4HP PRN PO 11/14/24 23:00 11/15/24 00:42 650 MG Cefepime HCl 50 ml @ 12.5 mls/hr ONCE ONCE IV 11/14/24 16:00 11/14/24 19:59 DC 11/14/24 16:32 12.5 MLS/HR Vancomycin HCl 250 ml @ 250 mls/hr ONCE ONCE IV 11/14/24 17:00 11/14/24 17:59 DC 11/14/24 16:32 250 MLS/HR Assessment/Plan Assessment/Plan #acute abdominal pain : Workup for life-threatening abdominal pain with mesenteric ischemia, pancreatitis, viscus rupture, Rule out STDs. #acute URI symptoms: COVID, influenza, strep throat to check. Treatment as per results. #acute cystitis UTI: No concerning resistant bacteria noted in the previous cultures #cute cholecystitis: gallbladder wall thickening and pericholecystic edema. Fi ndings are suspicious for a Ultrasound recommended. #noted Cholelithiasis #sepsis severe with lactic acidosis: Sepsis bundle, improved lactic acidosis #CKD stage 2: Avoid nephrotoxins, BNP to follow up #Hepatomegaly and hepatic steatosis: Check for INR /PTT: Possible fatty liver: Lifestyle modification, weight loss, check with liver ultrasound. #Diverticulosis coli without CT evidence of acute diverticulitis: Avoid constipation, high-fiber diet to continue. #Cardiomegaly , with the 130s of BNP, troponin negative : No echo on file, check for EKG, echo. #grade 1 obesity : Weight loss # prior history of alcohol abuse: Check for CMP/ liver function / anabolic function of liver. PT/INR. # prior history of nicotine abuse: Needs to follow up with PCP and outpatient abdominal ultrasound. # poor medical care, poor medical adherence, does not have established PCP. Discharge Clinic follow up with advice to close follow up with the primary care physician on discharge. PCP: No established PCP Specialist relevant to admission: General surgery Barriers to discharge: Active management and workup in progress. Case discussed with Dr. Acuna. Code status: Full code. Complex patient care discussion needed total 41 minutes. Plan discussed with: Patient My Orders Orders - JES AVILA RESIDENT Procedure Category Date Status Time Admit ADMIT 11/14/24 Transmitted 22:54 Allergies HOME 11/14/24 In Process 22:54 Code Status CODE 11/14/24 Transmitted 22:54 Acetaminophen Tablet PHA 11/14/24 In Process (Tylenol Tablet) 23:00 Ondansetron Hcl PHA 11/14/24 In Process (Zofran) 23:00 Docusate Sodium PHA 11/14/24 In Process Capsule (Colace 23:00 Fall Risk Precautions HOME 11/14/[address] 22:54 Complete Blood Count LAB 11/15/24 Logged 04:00 Comprehensive LAB 11/15/24 Logged Metabolic Panel 04:00 Condition: Fair HOME 11/14/24 In Process 22:54 Stat Ekg For Chest HOME 11/14/24 In Process Pain 22:54 Nitroglycerin PHA 11/14/24 In Process Sublingual (Ntrostat 23:00 Rapid Influenza A&B LAB 11/15/24 In Process 01:42 Covid19 Antigen Rowan LAB 11/15/24 In Process Lactated Ringer's PHA 11/15/24 In Process 02:30 Blood Culture ARYAN 11/15/24 Uncollected 02:26 Urine Bacterial ARYAN 11/15/24 Uncollected Culture 02:26 Respiratory Culture ARYAN 11/15/24 Uncollected W/ Gs 02:26 Vancomycin Per PHA 11/15/24 Pending Pharmacy 02:30 Cefepime 2gm/50ml Ns PHA 11/15/24 In Process (Maxipime 2gm/50ml) 02:30 Ct Ab Pel With Iv Con CT 11/15/24 Logged Only 02:33 Npo (Nothing By DIET 11/15/24 Transmitted Mouth) Diet Breakfast Vancomycin 1gm/250ml PHA 11/15/24 In Process Kit 02:45 Date of Service: Nov 14, 2024 Billing Provider: CARMELA ACUNA MD Common Visit Codes: [id number] INP/OBS CARE (HIGH) Secondary Visit Codes: [id number] CARE PLAN 30 MINUTES JES AVILA RESIDENT Nov 15, 2024 02:46 APRIL AMIN RESIDENT Nov 15, 2024 11:45
[2024-11-15] MEDS: LACTATED RINGER'S 1,000 ML IV ONE (12:32)
--- NOTE | 2024-11-15 14:45 | DVH ---
INDICATION: Rule out hepatobiliary pathology. TECHNIQUE: Multiple real-time sonographic images of the abdomen were obtained. COMPARISON: None FINDINGS: The liver is homogenous in echogenicity. The liver measures 19cm. No intrahepatic biliary ductal dilatation is noted. Gallbladder wall measures 6mm and is thickened. The right kidney measures 10 cm. No hydronephrosis. The pancreas is not well visualized due to obscuration from bowel gas. The visualized portions of the IVC and aorta are grossly unremarkable. IMPRESSION: Thickened gallbladder wall with gallstones and sludge. Cholecystitis not excluded. Hepatic Cirrhosis . Trace ascites
[2024-11-15] MEDS: LACTATED RINGER'S 1,000 ML IV SCH (15:49)
--- NOTE | 2024-11-15 18:33 | DVHPN2 ---
Progress Note Date Seen: Nov 15, 2024 Medical Necessity Reason Pt with a Central, PICC or Fol: No Subjective Patient reports: No new complaints (Pain improving with the pain control) Objective vital signs Vital Sign Date Time Temp Pulse Resp B/P (MAP) Pulse Ox O2 Delivery O2 Flow Rate FiO2 11/15/24 16:59 98.6 95 19 134/89 (104) 95 98.6 11/15/24 07:40 Room Air* 0 21 Total Intake and Output 11/14/24 11/14/24 11/15/24 15:00 23:00 07:00 Intake Total 300 ml 2300 ml Balance 300 ml 2300 ml medications Current Medications Medications Dose Ordered Sig/Ramon Route Start Time Stop Time Status Last Admin Dose Admin Acetaminophen 650 mg Q4HP PRN PO 11/14/24 23:00 11/15/24 00:42 650 MG Ondansetron HCl 4 mg Q4HP PRN IV 11/14/24 23:00 11/15/24 06:05 4 MG Docusate Sodium 100 mg BIDPRN PRN PO 11/14/24 23:00 Nitroglycerin 0.4 mg Q5MINP PRN SL 11/14/24 23:00 Ceftriaxone Sodium 50 ml @ 100 mls/hr DAILY@09 IV 11/16/24 09:00 Metronidazole 100 ml @ 100 mls/hr Q8HR IV 11/15/24 22:00 Lactated Ringer's 1,000 ml @ 75 mls/hr [id number] IV 11/15/24 11:30 11/15/24 15:49 75 MLS/HR Examination: GENERAL:Normal, HEENT:Normal, NECK:Normal, LUNGS:Normal, CVS:Normal, ABDOMEN:Abnormal (Abdominal pain diffuse), MSK:Normal, SKIN:Normal, NEURO:Normal, :Normal laboratory and microbiology Laboratory Tests 11/15/24 08:03 Test 11/15/24 08:03 Range/Units Serum Glucose 114 H 74-106 mg/dL Microbiology Date/Time Source Procedure Growth Status 11/14/24 16:51 Blood Blood Culture - Preliminary NO GROWTH AFTER 24 HOURS OF INCUBATION. Resulted Problem List/Assessment/Plan Problem List/Assessment/Plan #acute abdominal pain : Workup for life-threatening abdominal pain with mesenteric ischemia, pancreatitis, viscus rupture, Rule out STDs. #acute URI symptoms: COVID, influenza, strep throat to check. Treatment as per results. #acute cystitis UTI: No concerning resistant bacteria noted in the previous cultures #cute cholecystitis: gallbladder wall thickening and pericholecystic edema. will get MRCP #noted Cholelithiasis #sepsis severe with lactic acidosis: Sepsis bundle, improved lactic acidosis #CKD stage 2: Avoid nephrotoxins, BNP to follow up #Hepatomegaly and hepatic steatosis: : Possible fatty liver: Lifestyle modification, weight loss. #Diverticulosis coli without CT evidence of acute diverticulitis: Avoid constipation, high-fiber diet to continue. #Cardiomegaly , with the 130s of BNP, troponin negative : No echo on file, echo pending #grade 1 obesity : Weight loss # prior history of alcohol abuse: # prior history of nicotine abuse: Needs to follow up with PCP and outpatient abdominal ultrasound. # poor medical care, poor medical adherence, does not have established PCP. Discharge Clinic follow up with advice to close follow up with the primary care physician on discharge. Plan discussed with: Patient Date of Service: Nov 15, 2024 Billing Provider: SUSANA BURKS MD Common Visit Codes: [id number] INP/OBS CARE(HIGH) SUSANA BURKS MD Nov 15, 2024 18:33
[2024-11-16 01:00] VITALS: BP 110/71; PULSE 82; RESP 16; TEMP 97.8; O2SAT 95
[2024-11-16 05:00] VITALS: BP 133/70; PULSE 91; RESP 15; TEMP 98.6; O2SAT 92
[2024-11-16 08:51] VITALS: BP 122/70; PULSE 98; RESP 20; TEMP 98.3; O2SAT 93
--- NOTE | 2024-11-16 15:33 | DVHDS2 ---
Discharge Summary Date of Admission Nov 14, 2024 at 22:54 Date of Discharge: Nov 16, 2024 Labs/Diagnostic Data: Laboratory Results Test 11/15/24 11:55 11/15/24 08:03 11/15/24 06:00 11/15/24 01:35 Lactic Acid Level 1.7 mmol/L (0.4-2.0) Creatine Kinase 274 U/L (46-171) White Blood Count 15.6 10^3/uL (4.4-10.8) Red Blood Count 5.13 10^6/uL (4.5-5.90) Hemoglobin 14.7 g/dL (13.5-17.5) Hematocrit 43.7 % (41.0-53.0) Mean Corpuscular Volume 85.1 fL (80.0-100.0) Mean Corpuscular Hemoglobin 28.7 pg (28.0-32.0) Mean Corpuscular Hemoglobin Concent 33.8 g/dL (32.0-36.0) Red Cell Distribution Width 16.3 % (11.8-14.3) Platelet Count 150 10^3/uL (140-450) Mean Platelet Volume 7.8 fL (6.9-10.8) Neutrophils (%) (Auto) 85.6 % (37.0-80.0) Lymphocytes (%) (Auto) 6.2 % (10.0-50.0) Monocytes (%) (Auto) 7.6 % (0.0-12.0) Eosinophils (%) (Auto) 0.4 % (0.0-7.0) Basophils (%) (Auto) 0.2 % (0.0-2.0) Neutrophils # (Auto) 13.4 10 ^3/uL (1.6-8.6) Lymphocytes # (Auto) 1.0 10 ^3/uL (0.4-5.4) Monocytes # (Auto) 1.2 10 ^3/uL (0-1.3) Eosinophils # (Auto) 0.1 10 ^3/uL (0-0.8) Basophils # (Auto) 0 10 ^3/uL (0-0.2) Nucleated Red Blood Cells 0.1 % Sodium Level 136 mmol/L (136-145) Potassium Level 3.5 mmol/L (3.5-5.1) Chloride Level 108 mmol/L (98-107) Carbon Dioxide Level 20 mmol/L (20-31) Anion Gap 8 (5-15) Blood Urea Nitrogen 16 mg/dL (9-23) Creatinine 1.11 mg/dL (0.700-1.30) Glomerular Filtration Rate Calc 74 mL/min (>90) BUN/Creatinine Ratio 14.4 (10.0-20.0) Serum Glucose 114 mg/dL (74-106) Calcium Level 8.1 mg/dL (8.7-10.4) Total Bilirubin 0.6 mg/dL (0.2-1.0) Aspartate Amino Transferase (AST) 39 U/L (13-40) Alanine Aminotransferase (ALT) 44 U/L (7-40) Alkaline Phosphatase 79 U/L (46-116) Total Protein 6.6 g/dL (5.7-8.2) Albumin 3.4 g/dL (3.2-4.8) Lipase 50 U/L (12-53) Urine Color Light-yellow (Yellow) Urine Clarity Clear (Clear) Urine pH 5.0 (5.0-9.0) Urine Specific [place] 1.015 (1.001-1.035) Urine Protein Trace (Negative) Urine Ketones Negative (Negative) Urine Blood 1+ /uL (Negative) Urine Nitrite Negative (Negative) Urine Bilirubin Negative (Negative) Urine Urobilinogen Normal mg/dL (Negative) Urine Leukocyte Esterase Trace /uL (Negative) Urine RBC 2 /hpf (0 - 3) Urine Microscopic WBC 12 /HPF (0-3) Urine Squamous Epithelial Cells Few /hpf (<5) Urine Bacteria Few /hpf (None Seen) Urine Hyaline Casts Few /lpf (0 - 2) Urine Glucose Normal mg/dL (Normal) Influenza Type A Antigen Negative (Negative) Influenza Type B Antigen Negative (Negative) SARS-CoV-2 Antigen (Rapid) Negative (NEGATIVE) Test 11/15/24 00:37 11/15/24 00:00 11/14/24 15:32 11/14/24 12:22 POC Glucose 108 mg/dl (70-106) Troponin I High Sensitivity 14 ng/L (</=54) B-Type Natriuretic Peptide 131.75 pg/mL (0-100) Other Laboratory Tests 11/15/24 08:03 Brief Hx & Hospital Course: Jose Luis Faye is a 46-year-old male with a history of hypertension presenting with abdominal pain for 6 days, described as sharp, 8/10 in intensity, intermittent, non-radiating, worsened by eating, and without relieving factors. He denies vomiting, diarrhea, or unusual food intake. He also reports a recent cold for 3 days, body soreness since last night, and an episode of urinary incontinence in the ER. He denies fever, chest pain, shortness of breath, nausea, or other associated symptoms. Symptoms are moderate in severity and have been ongoing for several days. CT abdomen and pelvis shows cholelithiasis d iverticulosis, hepatosteatosis. Was positive for UTI. WBC GI with antibiotics pending gonorrhea and chlamydia. The patient this morning states that he usually leave AMA. Patient waiting for risk of possible sepsis and infection possible . Patient stated AMA and left. Condition at Discharge: Stable Final Diagnosis/Problems List For urinary tract infection Abdominal pain Cholelithiasis Sepsis Discharge Disposition: AMA Discharge Instruct/Medications Diet: Regular Activity: No Restrictions, As Tolerated Follow Up/Referral: Follow up PCP in 1-3 days No Active Prescriptions or Reported Meds Discharge Statement: "Patient was advised to return to the ER or call 911 if any headaches, dizziness, shortness of breath, chest pain, abdominal pain, bleeding, fevers, or worsening of medical condition. Patient was counseled about treatment plan, medications, possible side effects, patientverbalized understanding. All questions were answered to the best of my ability. This discharge took greater then 30 minutes in planning, reviewing documentation, counseling the patient, and discussing with other team members." ASSESSMENT ASSESSMENT Assessment Date of Service: Nov 16, 2024 Billing Provider: SUSANA BURKS MD Common Visit Codes: 38178-IRN/OBS DISCH DAY >30min SUSANA BURKS MD Nov 16, 2024 15:33
--- NOTE | 2024-11-17 14:06 | ECG ---
[facility] Test Date: 2024-11-15 Test Time: 01:25:23 Pat Name: MIGUELITO SANTIAGO Department: Room: 0296T A Gender: M Fairing Man: rafael : 1960 Requested By: JES AVILA Order Number: [id number] Reading MD: Xiang Hoover Measurements Intervals [place] Rate: 118 P: 52 VT: 135 QRS: 22 QRSD: 105 T: 30 QT: 341 QTc: 478 Interpretive Statements Sinus tachycardia with irregular rate Abnormal R-wave progression, early transition Borderline prolonged QT interval Electronically Signed On 11-17-2024 14:30:34 PDT by Xiang Hoover Please click the below link to view image of tracing.
--- NOTE | 2024-11-17 14:06 | ECG ---
[facility] Test Date: 2024-11-15 Test Time: 00:58:36 Pat Name: MIGUELITO SANTIAGO Department: Room: 0296T A Gender: M Fisher: rafael : 1960 Requested By: JES AVILA Order Number: [id number] Reading MD: Xiang Hoover Measurements Intervals [place] Rate: 116 P: 49 [place]: 127 QRS: 17 QRSD: 103 T: 47 QT: 322 QTc: 448 Interpretive Statements Sinus tachycardia with irregular rate Abnormal R-wave progression, early transition Electronically Signed On 11-17-2024 14:30:31 PDT by Xiang Hoover Please click the below link to view image of tracing.
--- NOTE | 2024-11-17 14:06 | ECG ---
[facility] Test Date: 2024-11-15 Test Time: 01:13:15 Pat Name: MIGUELITO SANTIAGO Department: Room: 0296T A Gender: M Washroom Cleaner: rafael : 1960 Requested By: JES AVILA Order Number: [id number] Reading MD: Xiang Hoover Measurements Intervals [place] Rate: 104 P: 52 [place]: 142 QRS: 23 QRSD: 103 T: 36 QT: 328 QTc: 432 Interpretive Statements Sinus tachycardia Supraventricular bigeminy Abnormal R-wave progression, early transition Electronically Signed On 11-17-2024 14:30:33 PDT by Xiang Hoover Please click the below link to view image of tracing.
[2024-11-18 06:07] LABS: Chlamydia Trachomatis, NAA Negative (Negative); Neisseria gonorrhoeae, NAA Negative (Negative)
== END 2024-11-16 09:30 | disposition left against medical advice (07) ==
LOC: ER 10:42 → EDBD 10:42 → OVERFLOW 22:54 → TELE-WESTW 23:00
PROVIDERS: ADMIT Internal Medicine; ATTEND Internal Medicine
DX: K80.00 Calculus of gallbladder with acute cholecystitis without obstruction (principal); E66.811 Obesity, class 1; N30.00 Acute cystitis without hematuria; Z53.29 Procedure and treatment not carried out because of patient's decision for other reasons; R32 Unspecified urinary incontinence; I12.9 Hypertensive chronic kidney disease with stage 1 through stage 4 chronic kidney disease, or unspecified chronic kidney disease; N18.2 Chronic kidney disease, stage 2 (mild); K57.30 Diverticulosis of large intestine without perforation or abscess without bleeding; K76.0 Fatty (change of) liver, not elsewhere classified; Z79.899 Other long term (current) drug therapy; Z68.30 Body mass index [BMI] 30.0-30.9, adult
CPT/HCPCS: 36415; 71045; 74177; 76705; 80048; 80053; 81001; 82550; 82962; 83605; 83690; 83880; 84484; 85025; 87040; 87086; 87426; 87804; 93005; 96365; 96368; G0378; J0692; J2405; J3490